=== PATIENT | female | born 2000 | race Caucasian/White ===

== ENCOUNTER 2018-03-07 15:14 | Emergency (ER) | payer OTHER ==
[~2018-03-07] VITALS: Ht 160 cm; Wt 117.9 kg
[~2018-03-07 15:14] MED LIST: AMOX500 PO; BIRTH CONTROL; CEPH500 PO; HYDACE5 PO; MEDR150I IM; PERM5TC TOP; Pyridium100 MG PO; THYROID MED
== END 2018-03-07 16:09 | disposition home or self-care (01) ==
LOC: ER 15:14
DX: J02.9 Acute pharyngitis, unspecified (principal); F17.200 Nicotine dependence, unspecified, uncomplicated
CPT/HCPCS: 87081; 87430; 99283; J1100

== ENCOUNTER 2018-03-09 16:45 | Emergency (ER) | payer OTHER ==
[~2018-03-09] VITALS: Ht 160 cm; Wt 117.9 kg
== END 2018-03-09 17:54 | disposition home or self-care (01) ==
LOC: ER 16:45
DX: J02.9 Acute pharyngitis, unspecified (principal); F17.200 Nicotine dependence, unspecified, uncomplicated
CPT/HCPCS: 99282

== ENCOUNTER 2018-08-17 00:37 | Emergency (ER) | payer OTHER ==
[~2018-08-17] VITALS: Ht 160 cm; Wt 131.5 kg
[2018-08-17] MEDS ORDERED: BENZ100A PO (01:31)
== END 2018-08-17 01:45 | disposition home or self-care (01) ==
LOC: ER 00:37
DX: J40 Bronchitis, not specified as acute or chronic (principal); F17.200 Nicotine dependence, unspecified, uncomplicated
CPT/HCPCS: 99283

== ENCOUNTER 2019-10-26 23:08 | Emergency (ER) | payer OTHER ==
[~2019-10-26] VITALS: Ht 160 cm; Wt 131.5 kg
[~2019-10-26 23:08] MED LIST changes: +BENZ100A PO
[2019-10-28 08:09] LABS: HCV ANTIBODY 0.2 (0.0-0.9); HIV SCREEN 4TH GENERATION WRFX Non Reactive (Non Reactive)
== END 2019-10-27 01:41 | disposition home or self-care (01) ==
LOC: ER 23:08
PROVIDERS: Emergency Medicine
DX: Z77.21 Contact with and (suspected) exposure to potentially hazardous body fluids (principal); F17.200 Nicotine dependence, unspecified, uncomplicated; Z88.8 Allergy status to other drugs, medicaments and biological substances
CPT/HCPCS: 84460; 86317; 86803; 87389; 99283

== ENCOUNTER 2020-02-27 02:34 | Emergency (ER) | payer OTHER ==
[~2020-02-27] VITALS: Ht 160 cm; Wt 136.1 kg
[2020-02-27] MEDS ORDERED: Cymbalta20 MG PT (02:58)
[2020-02-27] MEDS ORDERED: HYDROCODONE-AC1 EAC8 PO (02:59)
[2020-02-27] MEDS ORDERED: ALBU90OI INH (05:18)
[2020-02-27] MEDS ORDERED: ONDA4ODT MM (05:18)
[2020-02-27] MEDS ORDERED: PRED20 PO (05:18)
== END 2020-02-27 05:46 | disposition home or self-care (01) ==
LOC: ER 02:34
DX: J02.9 Acute pharyngitis, unspecified (principal); Z88.8 Allergy status to other drugs, medicaments and biological substances; Z79.899 Other long term (current) drug therapy; Z87.891 Personal history of nicotine dependence; Z20.828 Contact with and (suspected) exposure to other viral communicable diseases
CPT/HCPCS: 71045; 94640; 99284-25; J1100; U0002

== ENCOUNTER → 2020-03-24 | Outpatient (CLI) | payer OTHER ==
[~2020-03-24] MED LIST changes: +ALBU90OI INH; +Cymbalta20 MG PT; +HYDROCODONE-AC1 EAC8 PO; +ONDA4ODT MM; +PRED20 PO
== END | disposition home or self-care (01) ==
LOC: LAB 14:28 → LAB SHORT 14:28
DX: R10.9 Unspecified abdominal pain (principal)
CPT/HCPCS: 87077; 87086; 87186

== ENCOUNTER → 2020-07-29 | Outpatient (CLI) | payer BC, OTHER ==
[~2020-07-29] MED LIST changes: +CYMBALTA30 M2 PO; +PHENA200 PO
[2020-07-29 12:13] LABS: BASOPHILS ABSOLUTE AUTO 0.04 K/mm3 (0.00-0.23); BASOPHILS PERCENT AUTO 0 % (0-2); EOSINOPHILS ABSOLUTE AUTO 0.16 K/mm3 (0.00-0.68); EOSINOPHILS PERCENT AUTO 2 % (0-6); Hematocrit 42.8 % (33.0-51.0); Hemoglobin 14.1 g/dL (11.5-16.0); IMMATURE GRAN ABSOLUTE AUTO 0.02 K/mm3 (0.00-0.10); IMMATURE GRAN PERCENT AUTO 0 % (0-1); LYMPHOCYTES ABSOLUTE AUTO 1.38 K/mm3 (0.84-5.20); LYMPHOCYTES PERCENT AUTO 15 % (21-46); MONOCYTES ABSOLUTE AUTO 0.51 K/mm3 (0.16-1.47); MONOCYTES PERCENT AUTO 6 % (4-13); Mean Corpuscular HGB 29.2 pg (26.0-34.0); Mean Corpuscular HGB Conc 32.9 g/dL (31.5-36.5); Mean Corpuscular Volume 89 fL (80-100); Mean Platelet Volume 10.4 fL (9.1-12.4); NEUTROPHILS PERCENT AUTO 77 % (41-73); Platelet Count 315 K/mm3 (150-400); RDW Coefficient Variation 12.4 % (11.7-14.2); Red Blood Cell Count 4.83 M/mm3 (3.80-5.20); White Blood Cell Count 9.01 K/mm3 (4.00-11.30)
[2020-07-29 12:22] LABS: Alanine Aminotransfer (ALT/SGP 30 U/L (12-78); Albumin, Blood 3.7 g/dL (3.4-5.0); Albumin/Globulin Ratio 0.9 (0.8-1.8); Alk Phos 64 U/L (40-126); Anion Gap 9 mmol/L (6-16); Aspartate Aminotrans (AST/SGOT 15 U/L (12-37); Bilirubin, Total 0.4 mg/dL (0.1-1.0); Blood Urea Nitrogen 10 mg/dL (8-24); Bun/Creatinine Ratio 13.3 (12.0-20.0); CO2, Blood 25 mmol/L (21-32); Calcium, Blood 8.8 mg/dL (8.5-10.1); Chloride, Blood 102 mmol/L (98-108); Creatinine, Blood 0.75 mg/dL (0.40-1.00); Globulin, Blood 4.2 g/dL (2.2-4.0); Glomerular Filtration Rate >60 (60-); Glucose, Blood 112 mg/dL (70-99); Potassium, Blood 4.3 mmol/L (3.5-5.5); Sodium, Blood 136 mmol/L (136-145); Total Protein, Blood 7.9 g/dL (6.4-8.2)
== END ==
LOC: LAB SHORT 12:09 → PLD 12:09
PROVIDERS: General Practice
DX: J02.9 Acute pharyngitis, unspecified (principal)
CPT/HCPCS: 80053; 85025; 86644; 86645; 86664

== ENCOUNTER 2020-09-10 14:38 | Emergency (ER) | payer BC, OTHER ==
[~2020-09-10] VITALS: Ht 160 cm; Wt 127.0 kg
[~2020-09-10 14:38] MED LIST changes: -CYMBALTA30 M2 PO; -PHENA200 PO
[2020-09-10] MEDS ORDERED: CEPH500 PO (16:24)
[2020-09-10] MEDS ORDERED: PHENA200 PO (16:24)
== END 2020-09-10 17:20 | disposition home or self-care (01) ==
LOC: ER 14:38
DX: N39.0 Urinary tract infection, site not specified (principal); J06.9 Acute upper respiratory infection, unspecified; Z20.822 Contact with and (suspected) exposure to COVID-19; Z88.8 Allergy status to other drugs, medicaments and biological substances; Z79.52 Long term (current) use of systemic steroids; Z79.899 Other long term (current) drug therapy
CPT/HCPCS: 99283; A9270

== ENCOUNTER 2020-12-15 05:14 | Emergency (ER) | payer OTHER, BC ==
[~2020-12-15] VITALS: Ht 160 cm; Wt 129.3 kg
[~2020-12-15 05:14] MED LIST changes: +PHENA200 PO
[2020-12-15] MEDS ORDERED: CYMBALTA30 M2 PO (05:37)
[2020-12-16 06:11] LABS: HCV ANTIBODY <0.1 (0.0-0.9)
[2020-12-16 07:11] LABS: HIV SCREEN 4TH GENERATION WRFX Non Reactive (Non Reactive)
== END 2020-12-15 07:50 | disposition home or self-care (01) ==
LOC: ER 05:14
PROVIDERS: Emergency Medicine
DX: S61.231A Puncture wound without foreign body of left index finger without damage to nail, initial encounter (principal); Z77.21 Contact with and (suspected) exposure to potentially hazardous body fluids; Z88.8 Allergy status to other drugs, medicaments and biological substances; Z79.899 Other long term (current) drug therapy; Z87.891 Personal history of nicotine dependence; W46.1XXA Contact with contaminated hypodermic needle, initial encounter
CPT/HCPCS: 84460; 86317; 86703; 86803; 87340; 87389; 99282

== ENCOUNTER 2021-11-22 09:43 | Observation (INO) | payer OTHER ==
[~2021-11-22] VITALS: Ht 160 cm; Wt 147.0 kg
[~2021-11-22 09:43] MED LIST changes: +CYMBALTA30 M2 PO
[2021-11-22 10:17] LABS: Source, Urine Clean Catch
[2021-11-22 10:43] LABS: Appearance, Urine Hazy (Clear); Bilirubin, Urine 1+ (Neg); Blood, Urine 1+ (Neg); Color, Urine Yellow (P-Yellow); Glucose Qualitative, Urine Neg (Neg); Ketones, Urine 1+ (Neg); Leukocyte Esterase, Urine 1+ (Neg); Nitrite, Urine Neg (Neg); Protein, Urine 2+ (Neg); Specific Gravity, Urine 1.025 (1.003-1.022); Urobilinogen, Urine 3+ (Normal)
[2021-11-22 10:49] LABS: Bacteria Rare /hpf; Squamous Epithelial Cells Mod /hpf (Few)
[2021-11-22 11:08] LABS: Protein, Urine Random 34.4 mg/dL (0.0-11.9); Protein/Creat Ratio, Ur Random 0.2
[2021-11-22 11:25] LABS: BASOPHILS ABSOLUTE AUTO 0.01 K/mm3 (0.00-0.23); BASOPHILS PERCENT AUTO 0 % (0-2); EOSINOPHILS ABSOLUTE AUTO 0.03 K/mm3 (0.00-0.68); EOSINOPHILS PERCENT AUTO 0 % (0-6); Hematocrit 34.1 % (33.0-51.0); Hemoglobin 11.3 g/dL (11.5-16.0); IMMATURE GRAN ABSOLUTE AUTO 0.02 K/mm3 (0.00-0.10); IMMATURE GRAN PERCENT AUTO 0 % (0-1); LYMPHOCYTES ABSOLUTE AUTO 1.08 K/mm3 (0.84-5.20); LYMPHOCYTES PERCENT AUTO 15 % (21-46); MONOCYTES ABSOLUTE AUTO 0.41 K/mm3 (0.16-1.47); MONOCYTES PERCENT AUTO 6 % (4-13); Mean Corpuscular HGB 28.3 pg (26.0-34.0); Mean Corpuscular HGB Conc 33.1 g/dL (31.5-36.5); Mean Corpuscular Volume 86 fL (80-100); Mean Platelet Volume 11.1 fL (9.1-12.4); NEUTROPHILS ABSOLUTE AUTO 5.52 K/mm3 (1.96-9.15); NEUTROPHILS PERCENT AUTO 78 % (41-73); Platelet Count 224 K/mm3 (150-400); RDW Coefficient Variation 13.2 % (11.7-14.2); RDW Standard Deviation 40.6 fL (35.1-46.3); Red Blood Cell Count 3.99 M/mm3 (3.80-5.20); White Blood Cell Count 7.07 K/mm3 (4.00-11.30)
[2021-11-22 11:44] LABS: Albumin, Blood 2.2 g/dL (3.4-5.0); Albumin/Globulin Ratio 0.6 (0.8-1.8); Bilirubin, Total 0.3 mg/dL (0.1-1.0); Bun/Creatinine Ratio 22.6 (12.0-20.0); Calcium, Blood 9.1 mg/dL (8.5-10.1); Creatinine, Blood 0.57 mg/dL (0.40-1.00); Globulin, Blood 3.9 g/dL (2.2-4.0); Potassium, Blood 3.8 mmol/L (3.5-5.5); Total Protein, Blood 6.1 g/dL (6.4-8.2)
[2021-11-22 12:06] LABS: Amylase, Blood 256 U/L (25-115)
[2021-11-22 14:18] LABS: Cholesterol 175 mg/dL (50-200); Triglycerides 228 mg/dL (30-140)
[2021-11-22] MEDS ORDERED: METF500 PO (14:55)
[2021-11-22] MEDS ORDERED: HUMULIN R100 UNIT/2 SC ×2 (14:57)
[2021-11-22] MEDS ORDERED: HUMULIN N100 UNIT/6 SC ×2 (14:59)
[2021-11-22] MEDS ORDERED: BUSP10 PO (15:00)
[2021-11-22] MEDS ORDERED: PRENATAL TABLE1 EAC2 PO (15:00)
--- NOTE | 2021-11-22 16:34 | NUR ---
PT SLEEPING SOUNDLY
--- NOTE | 2021-11-22 19:30 | NUR ---
ASSUMED CARE OF PT AT 1900. REPORT RECEIVED FROM AYAH BROWNLEE. PT IS AO, RESTING IN BED. REPORTS MILD H/A AND LUQ PAIN RADIATING TO BACK, BOTH RATED 3/10. SHE STATES SHE IS HAVING SOME NAUSEA AND JUST FEELS GENERALLY UNWELL, BUT ATTRIBUTES THAT TO HER BLOOD SUGAR BEING LOW.BP IS TAKEN ON R WRIST AT LEVEL OF HEART DUE TO BODY HABITUS. REFLEXES WNL. PERRL 3MM. PT IS GENERALLY EDEMATOUS, NO PITTING. PT IS FAMILIAR WITH CALL LIGHT AND POC IS REVIEWED.
--- NOTE | 2021-11-22 20:00 | NUR ---
Giovana LOUISE CNM CALLED FOR CBG BELOW 80. WILL GIVE 100ML D5 AND RECHECK.
--- NOTE | 2021-11-22 20:42 | NUR ---
Giovana LOUISE CNM IS CALLED REGARDING CBG BELOW 80. WILL GIVE 1/2 AMP D50 AND START D5LR AT 125/HR FOR MAINTENANCE.
--- NOTE | 2021-11-22 22:25 | NUR ---
Giovana LOUISE CNM IS CALLED REGARDING CBG CONTINUES TO BE BELOW 80 DESPITE INTERVENTIONS. ORDERS FOR 1 AMP D50 NOW. RECHECK 30MIN AFTER AND IF CBG STILL BELOW 80 WILL CALL HOSPITALIST FOR ADVICE.
[2021-11-23 06:08] LABS: BASOPHILS ABSOLUTE AUTO 0.01 K/mm3 (0.00-0.23); BASOPHILS PERCENT AUTO 0 % (0-2); EOSINOPHILS ABSOLUTE AUTO 0.02 K/mm3 (0.00-0.68); EOSINOPHILS PERCENT AUTO 0 % (0-6); Hematocrit 35.4 % (33.0-51.0); Hemoglobin 11.4 g/dL (11.5-16.0); IMMATURE GRAN ABSOLUTE AUTO 0.01 K/mm3 (0.00-0.10); IMMATURE GRAN PERCENT AUTO 0 % (0-1); LYMPHOCYTES ABSOLUTE AUTO 1.63 K/mm3 (0.84-5.20); LYMPHOCYTES PERCENT AUTO 27 % (21-46); MONOCYTES ABSOLUTE AUTO 0.37 K/mm3 (0.16-1.47); MONOCYTES PERCENT AUTO 6 % (4-13); Mean Corpuscular HGB 28.1 pg (26.0-34.0); Mean Corpuscular HGB Conc 32.2 g/dL (31.5-36.5); Mean Corpuscular Volume 87 fL (80-100); Mean Platelet Volume 11.2 fL (9.1-12.4); NEUTROPHILS ABSOLUTE AUTO 3.94 K/mm3 (1.96-9.15); NEUTROPHILS PERCENT AUTO 66 % (41-73); Platelet Count 236 K/mm3 (150-400); RDW Coefficient Variation 13.3 % (11.7-14.2); RDW Standard Deviation 41.7 fL (35.1-46.3); Red Blood Cell Count 4.05 M/mm3 (3.80-5.20); White Blood Cell Count 5.98 K/mm3 (4.00-11.30)
--- NOTE | 2021-11-23 06:25 | NUR ---
PT SLEEPS SOUNDLY OVERNIGHT WITH BRIEF INTERRUPTIONS FOR CARE. SHE REPORTS THAT HER H/A IS GONE, AND THAT HER LUQ PAIN IS JUST SORE. PT C/O FEELING VERY HUNGRY. CBG THIS AM IS 86, VSS, OU ADEQUATE. WILL CONTINUE TO MONITOR AND REPORT TO ONCOMING SHIFT.
[2021-11-23 06:40] LABS: Albumin, Blood 2.1 g/dL (3.4-5.0); Albumin/Globulin Ratio 0.6 (0.8-1.8); Bilirubin, Total 0.7 mg/dL (0.1-1.0); Bun/Creatinine Ratio 10.8 (12.0-20.0); Calcium, Blood 8.6 mg/dL (8.5-10.1); Creatinine, Blood 0.55 mg/dL (0.40-1.00); Globulin, Blood 3.8 g/dL (2.2-4.0); Potassium, Blood 3.8 mmol/L (3.5-5.5); Total Protein, Blood 5.9 g/dL (6.4-8.2)
--- NOTE | 2021-11-23 08:45 | NUR ---
PT AWAKE AND UP WALKING THE HALLS. STATES SHE IS FEELING MUCH BETTER TODAY.
[2021-11-23 14:53] LABS: Albumin, Blood 2.1 g/dL (3.4-5.0); Albumin/Globulin Ratio 0.6 (0.8-1.8); Bilirubin, Total 0.5 mg/dL (0.1-1.0); Bun/Creatinine Ratio 14.1 (12.0-20.0); Calcium, Blood 8.9 mg/dL (8.5-10.1); Creatinine, Blood 0.5 mg/dL (0.40-1.00); Globulin, Blood 3.8 g/dL (2.2-4.0); Potassium, Blood 4.1 mmol/L (3.5-5.5); Total Protein, Blood 5.9 g/dL (6.4-8.2)
[2021-11-24 07:07] LABS: Albumin, Blood 2.1 g/dL (3.4-5.0); Albumin/Globulin Ratio 0.5 (0.8-1.8); Bilirubin, Total 0.6 mg/dL (0.1-1.0); Bun/Creatinine Ratio 10.9 (12.0-20.0); Calcium, Blood 9.1 mg/dL (8.5-10.1); Creatinine, Blood 0.55 mg/dL (0.40-1.00); Globulin, Blood 3.9 g/dL (2.2-4.0)
--- NOTE | 2021-11-24 22:45 | NUR ---
ASSUMED CARE OF PT. REPORT RECEIVED FROM AYAH RIVERA.
--- NOTE | 2021-11-25 01:00 | NUR ---
PT IS SLEEPING SOUNDLY. AWAKENED BRIEFLY FOR VS. DENIES ANY NEEDS AT THIS TIME.
[2021-11-25 06:30] LABS: Albumin/Globulin Ratio 0.5 (0.8-1.8); Bilirubin, Total 0.6 mg/dL (0.1-1.0); Bun/Creatinine Ratio 12.2 (12.0-20.0); Calcium, Blood 8.7 mg/dL (8.5-10.1); Creatinine, Blood 0.57 mg/dL (0.40-1.00); Globulin, Blood 3.7 g/dL (2.2-4.0); Potassium, Blood 3.8 mmol/L (3.5-5.5); Total Protein, Blood 5.7 g/dL (6.4-8.2)
--- NOTE | 2021-11-25 06:34 | NUR ---
PT SLEEPS WELL OVERNIGHT. SHE STATES HER H/A AND LUQ PAIN ARE NOW GONE. UO IMPROVING, BUT STILL ANTONIO. PT IS TAKING PO WELL, WILL TRY TO DRINK MORE WATER. VSS, NST REACTIVE, LABS PENDING.
--- NOTE | 2021-11-25 12:19 | NUR ---
DISCHARGE INSTRUCTIONS, WRITTEN AND VERBAL, GIVEN TO PATIENT. ANSWERED ALL QUESTIONS AND CONCERNS. IV DISCONTINUED. ALL PERSONAL BELONGINGS RETURNED. PT IS DISCHARGED HOME AND TOLD TO F/U WITH
== END 2021-11-25 12:19 | disposition home or self-care (01) ==
LOC: OBS 09:43 → BC 09:43 → OBS 14:29 → BC 14:30 → OBS 15:11 → BC 15:12 → OBS 15:12 → BC 15:12 → OBS 11-25 12:19
PROVIDERS: Obstetrics & Gynecology; ADMIT Nurse Practitioner Obstetrics & Gynecology
DX: O99.613 Diseases of the digestive system complicating pregnancy, third trimester (principal); O24.419 Gestational diabetes mellitus in pregnancy, unspecified control; O99.283 Endocrine, nutritional and metabolic diseases complicating pregnancy, third trimester; O99.213 Obesity complicating pregnancy, third trimester; E66.9 Obesity, unspecified; K75.81 Nonalcoholic steatohepatitis (NASH); K21.9 Gastro-esophageal reflux disease without esophagitis; K85.90 Acute pancreatitis without necrosis or infection, unspecified; E78.1 Pure hyperglyceridemia; Z3A.32 32 weeks gestation of pregnancy; Z79.4 Long term (current) use of insulin; Z79.84 Long term (current) use of oral hypoglycemic drugs
CPT/HCPCS: 36415; 59025; 76705; 80053; 81001; 81003; 82150; 82465; 82570; 82947; 83036; 83690; 84156; 84478; 85025; 87086; 96361; 96374; A9270; G0378; J2405; J7060; J7120; J7121

== ENCOUNTER 2021-12-02 12:09 | Inpatient (IN) | payer OTHER ==
[~2021-12-02] VITALS: Ht 160 cm; Wt 147.9 kg
[~2021-12-02 12:09] MED LIST changes: +BUSP10 PO; +HUMULIN N100 UNIT/6 SC; +HUMULIN R100 UNIT/2 SC; +METF500 PO; +PRENATAL TABLE1 EAC2 PO
[2021-12-02] MEDS ORDERED: Lantus100 UNIT/1 SC (12:27)
[2021-12-02 12:45] LABS: BASOPHILS ABSOLUTE AUTO 0.02 K/mm3 (0.00-0.23); BASOPHILS PERCENT AUTO 0 % (0-2); EOSINOPHILS ABSOLUTE AUTO 0.03 K/mm3 (0.00-0.68); EOSINOPHILS PERCENT AUTO 0 % (0-6); Hematocrit 36.2 % (33.0-51.0); Hemoglobin 12.1 g/dL (11.5-16.0); IMMATURE GRAN ABSOLUTE AUTO 0.02 K/mm3 (0.00-0.10); IMMATURE GRAN PERCENT AUTO 0 % (0-1); LYMPHOCYTES ABSOLUTE AUTO 1.36 K/mm3 (0.84-5.20); LYMPHOCYTES PERCENT AUTO 17 % (21-46); MONOCYTES ABSOLUTE AUTO 0.47 K/mm3 (0.16-1.47); MONOCYTES PERCENT AUTO 6 % (4-13); Mean Corpuscular HGB 28.1 pg (26.0-34.0); Mean Corpuscular HGB Conc 33.4 g/dL (31.5-36.5); Mean Corpuscular Volume 84 fL (80-100); Mean Platelet Volume 11.8 fL (9.1-12.4); NEUTROPHILS ABSOLUTE AUTO 5.95 K/mm3 (1.96-9.15); NEUTROPHILS PERCENT AUTO 76 % (41-73); Platelet Count 277 K/mm3 (150-400); RDW Coefficient Variation 13.8 % (11.7-14.2); White Blood Cell Count 7.85 K/mm3 (4.00-11.30)
[2021-12-02 13:05] LABS: Albumin, Blood 2.3 g/dL (3.4-5.0); Albumin/Globulin Ratio 0.5 (0.8-1.8); Bilirubin, Total 0.8 mg/dL (0.1-1.0); Bun/Creatinine Ratio 18.7 (12.0-20.0); Calcium, Blood 9.1 mg/dL (8.5-10.1); Creatinine, Blood 0.54 mg/dL (0.40-1.00); Globulin, Blood 4.3 g/dL (2.2-4.0); Potassium, Blood 4.4 mmol/L (3.5-5.5); Total Protein, Blood 6.6 g/dL (6.4-8.2)
[2021-12-02 18:34] LABS: Source, Urine Clean Catch
[2021-12-02 18:37] LABS: Appearance, Urine Hazy (Clear); Bilirubin, Urine Neg (Neg); Blood, Urine Neg (Neg); Color, Urine Yellow (P-Yellow); Glucose Qualitative, Urine Neg (Neg); Ketones, Urine Neg (Neg); Leukocyte Esterase, Urine 2+ (Neg); Nitrite, Urine Neg (Neg); Protein, Urine Neg (Neg); Urobilinogen, Urine NORM (Normal); pH, Urine 6.5 (5.0-8.0)
[2021-12-02 19:01] LABS: Bacteria Many /hpf; Red Blood Cells, Urine 0-2 /hpf (0-2); Squamous Epithelial Cells Mod /hpf (Few)
--- NOTE | 2021-12-02 19:49 | NUR ---
PT APPEARS TO BE RESTING COMFORTABLY IN BED WITH EYES CLOSED. HAS CALL LIGHT IN REACH.
--- NOTE | 2021-12-02 20:27 | NUR ---
PROVIDER AILYN THOMPSON IN TO SEE PT AT THIS TIME. NEW ORDER FOR BENADRYL AND SMALL AMOUNTS OF PO ICE OBTAINED. WILL CONTINUE TO LEAVE PT NPO WITH LR RUNNING AT 125 ML/HR. 24HR URINE COLLECTION IN PROGRESS. PLAN TO REPEAT LABS IN MORNING. PT EDUCATED ON PLAN, DIET, INSULIN, AND PAIN MANAGEMENT. PT VERBALIZED UNDERSTANDING AND DENIED CONCERNS AT THIS TIME. PT CURRENTLY RESTING IN BED WITH CALL LIGHT IN REACH. WILL CONTINUE TO MONITOR PT FOR CHANGES AND IMPLEMENT ORDERS DIRECTED.
--- NOTE | 2021-12-02 21:36 | NUR ---
JAY NOTIFIED OF CBG VALUE OF 67, NEW ORDER OBTAINED FOR D5 AT 125ML/HR. PT DENIES SX OF HYPOGLYCEMIA. WILL IMPLEMENT ORDER AND CONTINUE TO MONITOR PATIENT, WILL ASSESS CBG ORDERED. PT SITTING ON SIDE OF BED USING CELL PHONE. HAS CALL LIGHT IN REACH. DENIES NEEDS.
--- NOTE | 2021-12-03 02:11 | NUR ---
PT COMPLAINS OF "FEELING OFF" UPON WAKING-UP TO USE BATHROOM AT THIS TIME. STATES, "NOTHING DRAMATIC JUST FEELING OFF A LITTLE." VITAL SIGNS STABLE, CBG 86, DENIES SHORTNESS OF BREATH, N/V, NUMBNESS/TINGLING, CHEST PAIN OR VISUAL CHANGES. REPORTS FEELING BABY MOVE WITHIN THE LAST 30MINS. PT ALSO C/O BACK, HIPS, RIB CAGE DISCOMFORT. RATES PAIN 3/10; PO TYLENOL GIVEN PER ORDER. SMALL AMOUNT OF WATER AND ICE CHIPS PROVIDED. PT DANGLING AT BEDSIDE WHILE EATING ICE CHIPS. HAS CALL LIGHT IN REACH. D5 INFUSING PER ORDER. WILL CONTINUE TO MONITOR
--- NOTE | 2021-12-03 02:20 | NUR ---
SCD PT REFUSING SCD AT THIS TIME, REQUESTING "A LITTLE BREAK." EDUCATED PT ON IMPORTANCE OF SCD USE AND RISK INVOLVED WITH REMOVING. PT VERBALIZED UNDERSTANDING. PLAN TO PROMPT PT TO USE SCD'S IN 2 HOURS, PER PT/RN DISCUSSION.
--- NOTE | 2021-12-03 02:53 | NUR ---
PT APPEARS TO BE SLEEPING IN BED AND SNORING. HAS CALL LIGHT IN REACH.
[2021-12-03 05:46] LABS: BASOPHILS ABSOLUTE AUTO 0.02 K/mm3 (0.00-0.23); BASOPHILS PERCENT AUTO 0 % (0-2); EOSINOPHILS ABSOLUTE AUTO 0.04 K/mm3 (0.00-0.68); EOSINOPHILS PERCENT AUTO 1 % (0-6); Hematocrit 34.8 % (33.0-51.0); Hemoglobin 11.1 g/dL (11.5-16.0); IMMATURE GRAN ABSOLUTE AUTO 0.02 K/mm3 (0.00-0.10); IMMATURE GRAN PERCENT AUTO 0 % (0-1); LYMPHOCYTES PERCENT AUTO 28 % (21-46); MONOCYTES ABSOLUTE AUTO 0.37 K/mm3 (0.16-1.47); MONOCYTES PERCENT AUTO 6 % (4-13); Mean Corpuscular HGB Conc 31.9 g/dL (31.5-36.5); Mean Corpuscular Volume 88 fL (80-100); Mean Platelet Volume 11.7 fL (9.1-12.4); NEUTROPHILS ABSOLUTE AUTO 3.69 K/mm3 (1.96-9.15); NEUTROPHILS PERCENT AUTO 64 % (41-73); Platelet Count 227 K/mm3 (150-400); RDW Coefficient Variation 14.1 % (11.7-14.2); Red Blood Cell Count 3.96 M/mm3 (3.80-5.20); White Blood Cell Count 5.74 K/mm3 (4.00-11.30)
[2021-12-03 06:17] LABS: Albumin, Blood 1.9 g/dL (3.4-5.0); Albumin/Globulin Ratio 0.5 (0.8-1.8); Bilirubin, Total 0.7 mg/dL (0.1-1.0); Bun/Creatinine Ratio 11.9 (12.0-20.0); Calcium, Blood 8.7 mg/dL (8.5-10.1); Creatinine, Blood 0.51 mg/dL (0.40-1.00); Globulin, Blood 3.8 g/dL (2.2-4.0); Potassium, Blood 3.7 mmol/L (3.5-5.5); Thyroid Stimulating Hormone 3.73 uIU/mL (0.360-4.800); Total Protein, Blood 5.7 g/dL (6.4-8.2)
--- NOTE | 2021-12-03 12:14 | NUR ---
REPORT FROM AYAH PLASCENCIA. PER PT REQUEST, SHE WOULD LIKE TO SHOWER. FEELING BETTER THAN SHE DID YESTERDAY, AWAITING DR. CULP HOSPITALIST FOR CONSULT THIS AFTERNOON. PER DR CULP, SHE IS WAITING FOR THE ULTRASOUND REPORT TO COME BACK AND PER DR MALDONADO PT WILL STAY OVERNIGHT TONIGHT. PT HAVING NO PAIN AT THIS TIME. UP TO SHOWER. FLUIDS PAUSED DURING SHOWER. 24 HOUR URINE RESTARTED AT 11:00.
--- NOTE | 2021-12-03 13:16 | NUR ---
PER DR CULP PT CAN PROGRESS TO CLEAR LIQUID DIET
[2021-12-04 06:28] LABS: Albumin, Blood 1.9 g/dL (3.4-5.0); Albumin/Globulin Ratio 0.5 (0.8-1.8); Bilirubin, Total 0.7 mg/dL (0.1-1.0); Calcium, Blood 8.7 mg/dL (8.5-10.1); Creatinine, Blood 0.5 mg/dL (0.40-1.00); Globulin, Blood 3.7 g/dL (2.2-4.0); Potassium, Blood 3.6 mmol/L (3.5-5.5); Total Protein, Blood 5.6 g/dL (6.4-8.2)
--- NOTE | 2021-12-04 07:10 | NUR ---
hospitalist making rounds, new orders for clear liquid advancement at 0820 dr palacios making rounds
--- NOTE | 2021-12-04 07:20 | NUR ---
pt not reporting any pain, pt encouraged to let RN know when needs cbg done, that it needs to be 1 hr postprandial and to start when she eats.
--- NOTE | 2021-12-04 08:40 | NUR ---
IV FLUIDS STOPPED AT 0840, PER MARIAN CNLaura AT BEDSIDE, OK TO DC PT AT 1100 AFTER 24 HR URINE IS COLLECTED, DONT NEED RESULTS, THEY WILL CALL HER WITH THE RESULTS PT WORKS TOMORROW IN THEIR OFFICE
--- NOTE | 2021-12-04 09:53 | NUR ---
PT REPEAT HOURLY CBG WAS 114, NO INSULIN COVERAGE NEEDED.
--- NOTE | 2021-12-04 11:17 | NUR ---
24 HR URINE UP TO LAB, OK TO DC PT WITH OUT RESULTS PER MARIAN CNM
--- NOTE | 2021-12-04 11:23 | NUR ---
KYLE AT 1123, TOOK 2 BP, FIRST ONE WAS WITH PT LEANING BACK ON BED PUTTING PRESSURE ON HER ARM HOLDING HERSELF UP. HAD PT SIT AND TAKE PRESSURE OFF ARM AND BP WAS 140/76, THIS IS A NORMAL BP FOR PT PER PT. URINE IS UPSTAIRS, WILL NOTIFY CARLEEN NAVARRO OR DR MONACO OF RESULTS WHEN THEM COME IN AT 1300ISH. PT IS HAPPY TO LEAVE, HAS APPT TOMORROW WITH [facility], PT IS THINKING SHE WANTS TO DELIVER THERE INSTEAD OF HERE INCASE BABY NEEDS TO BE TRANSPORTED, SHE DOESNT WANT TO BE SEPERATED FROM BABY.
[2021-12-04 11:57] LABS: Protein, Urine Quantitative 6.2 mg/dL (0.0-11.9)
== END 2021-12-04 11:20 | disposition home or self-care (01) | DRG 831 ==
LOC: ER 12:09 → BC 16:00
PROVIDERS: Emergency Medicine; Internal Medicine; Nurse Practitioner Obstetrics & Gynecology; Student in an Organized Health Care Education/Training Program; ADMIT Obstetrics & Gynecology
DX: O99.613 Diseases of the digestive system complicating pregnancy, third trimester (principal); K85.10 Biliary acute pancreatitis without necrosis or infection; O99.213 Obesity complicating pregnancy, third trimester; O99.343 Other mental disorders complicating pregnancy, third trimester; E03.9 Hypothyroidism, unspecified; O24.414 Gestational diabetes mellitus in pregnancy, insulin controlled; O99.283 Endocrine, nutritional and metabolic diseases complicating pregnancy, third trimester; E88.81 Metabolic syndrome and other insulin resistance; O99.333 Smoking (tobacco) complicating pregnancy, third trimester; E78.5 Hyperlipidemia, unspecified; K75.81 Nonalcoholic steatohepatitis (NASH); F41.8 Other specified anxiety disorders; F31.9 Bipolar disorder, unspecified; F17.210 Nicotine dependence, cigarettes, uncomplicated; Z3A.34 34 weeks gestation of pregnancy; Z79.4 Long term (current) use of insulin; Z87.01 Personal history of pneumonia (recurrent); Z98.818 Other dental procedure status; Z91.048 Other nonmedicinal substance allergy status; Z79.899 Other long term (current) drug therapy
CPT/HCPCS: 36415; 76705; 76815; 80053; 81001; 81050; 82150; 82947; 83036; 83690; 84156; 84443; 85025; 87086; 96374; 99285-25; A9270; C9113; J2405; J2550; J7120; J7121

== ENCOUNTER 2021-12-26 07:30 | Inpatient (IN) | payer OTHER ==
[~2021-12-26] VITALS: Ht 160 cm; Wt 148.0 kg
[~2021-12-26 07:30] MED LIST changes: +Lantus100 UNIT/1 SC
--- NOTE | 2021-12-26 09:38 | NUR ---
FHT 140s
[2021-12-26 09:45] LABS: BASOPHILS ABSOLUTE AUTO 0.02 K/mm3 (0.00-0.23); BASOPHILS PERCENT AUTO 0 % (0-2); EOSINOPHILS ABSOLUTE AUTO 0.01 K/mm3 (0.00-0.68); EOSINOPHILS PERCENT AUTO 0 % (0-6); Hematocrit 37.1 % (33.0-51.0); Hemoglobin 12.4 g/dL (11.5-16.0); IMMATURE GRAN ABSOLUTE AUTO 0.02 K/mm3 (0.00-0.10); IMMATURE GRAN PERCENT AUTO 0 % (0-1); LYMPHOCYTES PERCENT AUTO 23 % (21-46); MONOCYTES ABSOLUTE AUTO 0.45 K/mm3 (0.16-1.47); MONOCYTES PERCENT AUTO 6 % (4-13); Mean Corpuscular HGB 28.8 pg (26.0-34.0); Mean Corpuscular HGB Conc 33.4 g/dL (31.5-36.5); Mean Corpuscular Volume 86 fL (80-100); Mean Platelet Volume 12.6 fL (9.1-12.4); NEUTROPHILS ABSOLUTE AUTO 5.32 K/mm3 (1.96-9.15); NEUTROPHILS PERCENT AUTO 71 % (41-73); Platelet Count 222 K/mm3 (150-400); RDW Coefficient Variation 14.6 % (11.7-14.2); RDW Standard Deviation 45.8 fL (35.1-46.3); Red Blood Cell Count 4.31 M/mm3 (3.80-5.20); White Blood Cell Count 7.52 K/mm3 (4.00-11.30)
[2021-12-26 10:25] LABS: Albumin, Blood 2.4 g/dL (3.4-5.0); Albumin/Globulin Ratio 0.6 (0.8-1.8); Bilirubin, Total 0.6 mg/dL (0.1-1.0); Bun/Creatinine Ratio 22.7 (12.0-20.0); Creatinine, Blood 0.84 mg/dL (0.40-1.00); Globulin, Blood 4.2 g/dL (2.2-4.0); Potassium, Blood 3.9 mmol/L (3.5-5.5); Total Protein, Blood 6.6 g/dL (6.4-8.2)
[2021-12-26 10:28] LABS: Amylase, Blood 57 U/L (25-115)
[2021-12-26 13:33] LABS: PCO2 Cord - Arterial 64.6 mmHg (40-50); pH Cord - Arterial 7.22 (7.28-7.35)
[2021-12-26 13:34] LABS: PO2 Cord - Arterial < 14 mmHg (16-20)
[2021-12-26 13:36] LABS: PO2 Cord - Venous 24.2 mmHg (28-32); pH Umbilical Cord - Venous 7.26 (7.26-7.35)
--- NOTE | 2021-12-26 14:56 | NUR ---
1415 dr wonderly aware that pt is having a pph, reports to give methergine im if bp meets parameters 1430 cytotec 800mcg given rectally per dr wonderly 1445 dr wonderly aware of qbl of 721, reports to give a second dose of methergine im if needed, bp meets parameters
--- NOTE | 2021-12-26 15:06 | NUR ---
DR LOERA AWARE AT 1506 PT LARGE GUSH, TO GIVE HEMABATE, BP TOO HIGH FOR SECOND DOSE OF METHERGINE,. ORDER FOR LR/PITOCIN 250CC/HR WHEN VAG BLEEDING SMALL MAY GO DOWN TO 150CC/HR. MAY SL WHEN VAG BLEEDING APPROPERIATE PER DR MALDONADO
--- NOTE | 2021-12-26 15:48 | NUR ---
12/26/21 1548 Tia Michel INTO OR AT 1213. BABY BOY DELIVERED AT 1305, 8/9 APGARS. EBL 750 IN OR, TRANSFERRED TO OB PACU AT 1419. WILL CONTINUE TO MONITOR.
--- NOTE | 2021-12-26 16:01 | NUR ---
AT 1419 PT ADMITTED TO PACU. BP, HR, O2 MONITORED. PAS RESTARTED.REPORT FROM MD CORTEZ RECEIVED, EBL 750 FROM OR. FUNDAL RUB AT 1430 RESULTED IN THE EXPRESSION OF TWO LARGE CLOTS WITH CONTINUED BLEEDING UNTIL EVENTUALLY FUNDUS BECAME FIRM. QBL 721, WITH ADDITIONAL EBL 750 FOR A TOTAL OF 1471. WONDERLY CALLED, ORDERS FOR IM METHERGINE OBTAINED. MULTIPLE RN'S REMINDED OF PT'S PREECLAMPSIA DIAGNOSIS. ORDERED METHERGINE .2MG TO BE GIVEN. @1550 FUNDAL MASSAGE EXPRESSED ADDITIONAL CLOTS. WONDERLY CALLED X2 TO CONSULT WITH NO ANSWER. WILL CONTINUE TO ATTEMPT TO CONTACT.
[2021-12-26 22:47] LABS: BASOPHILS ABSOLUTE AUTO 0.03 K/mm3 (0.00-0.23); BASOPHILS PERCENT AUTO 0 % (0-2); EOSINOPHILS PERCENT AUTO 0 % (0-6); Hematocrit 26.9 % (33.0-51.0); Hemoglobin 9.1 g/dL (11.5-16.0); IMMATURE GRAN ABSOLUTE AUTO 0.02 K/mm3 (0.00-0.10); IMMATURE GRAN PERCENT AUTO 0 % (0-1); LYMPHOCYTES ABSOLUTE AUTO 1.51 K/mm3 (0.84-5.20); LYMPHOCYTES PERCENT AUTO 15 % (21-46); MONOCYTES ABSOLUTE AUTO 0.47 K/mm3 (0.16-1.47); MONOCYTES PERCENT AUTO 5 % (4-13); Mean Corpuscular HGB 28.8 pg (26.0-34.0); Mean Corpuscular HGB Conc 33.8 g/dL (31.5-36.5); Mean Corpuscular Volume 85 fL (80-100); Mean Platelet Volume 12.1 fL (9.1-12.4); NEUTROPHILS ABSOLUTE AUTO 7.86 K/mm3 (1.96-9.15); NEUTROPHILS PERCENT AUTO 79 % (41-73); Platelet Count 161 K/mm3 (150-400); RDW Coefficient Variation 14.6 % (11.7-14.2); RDW Standard Deviation 45.1 fL (35.1-46.3); Red Blood Cell Count 3.16 M/mm3 (3.80-5.20); White Blood Cell Count 9.89 K/mm3 (4.00-11.30)
[2021-12-27 06:17] LABS: BASOPHILS ABSOLUTE AUTO 0.02 K/mm3 (0.00-0.23); BASOPHILS PERCENT AUTO 0 % (0-2); EOSINOPHILS ABSOLUTE AUTO 0.02 K/mm3 (0.00-0.68); EOSINOPHILS PERCENT AUTO 0 % (0-6); Hematocrit 25.6 % (33.0-51.0); Hemoglobin 8.5 g/dL (11.5-16.0); IMMATURE GRAN ABSOLUTE AUTO 0.02 K/mm3 (0.00-0.10); IMMATURE GRAN PERCENT AUTO 0 % (0-1); LYMPHOCYTES PERCENT AUTO 14 % (21-46); MONOCYTES PERCENT AUTO 6 % (4-13); Mean Corpuscular HGB 28.7 pg (26.0-34.0); Mean Corpuscular HGB Conc 33.2 g/dL (31.5-36.5); Mean Corpuscular Volume 87 fL (80-100); NEUTROPHILS ABSOLUTE AUTO 6.76 K/mm3 (1.96-9.15); NEUTROPHILS PERCENT AUTO 79 % (41-73); Platelet Count 157 K/mm3 (150-400); RDW Coefficient Variation 14.7 % (11.7-14.2); RDW Standard Deviation 46.2 fL (35.1-46.3); Red Blood Cell Count 2.96 M/mm3 (3.80-5.20); White Blood Cell Count 8.52 K/mm3 (4.00-11.30)
[2021-12-27 06:38] LABS: Albumin, Blood 1.7 g/dL (3.4-5.0); Albumin/Globulin Ratio 0.4 (0.8-1.8); Bilirubin, Total 0.3 mg/dL (0.1-1.0); Bun/Creatinine Ratio 17.1 (12.0-20.0); Calcium, Blood 8.4 mg/dL (8.5-10.1); Creatinine, Blood 0.7 mg/dL (0.40-1.00); Globulin, Blood 4.1 g/dL (2.2-4.0); Potassium, Blood 4.3 mmol/L (3.5-5.5); Total Protein, Blood 5.8 g/dL (6.4-8.2)
--- NOTE | 2021-12-27 07:43 | NUR ---
WOUND VAC IN PLACE OVER INCISION. PT DESIRES TO GET UP TO SHOWER AFTER BREAKFAST. REPORTS PAIN 3/10 AND TOLERATES WELL.
--- NOTE | 2021-12-27 09:00 | NUR ---
PT DECLINED WANTING TO GET UP TO SHOWER OR BRP AT THIS TIME.
--- NOTE | 2021-12-27 10:24 | NUR ---
UP TO SHOWER. VOIDED. LINENS CHANGED. PT DAVID WELL. LOCHIA LIGHT
--- NOTE | 2021-12-27 17:55 | NUR ---
1740: PT UP TO BRP. DAVID SELF CARE WELL. FAMILY CALLS FOR RN STATING THAT PT REPORTS SHE CAN'T CATCH HER BREATH. RN AND ADDITIONAL STAFF INTO ROOM. PT'S COLOR IS GOOD. PT TEARFUL AND HYPERVENTILATING. PT ASSISTING TO BED. BREATHING CORRECTED. VS DONE. BIOX 99%, COLOR GOOD. PT DENIES CHEST PAIN IN ANY ONE SPECIFIC SPOT BUT STATES SHE FEELS LIKE SHE CAN'T GET HER BREATH. PT SET UP IN HIGH NOVA'S POSITION. LUNGS CLEAR T/O. RR DOWN TO 24. PT DESIRES TO TAKE A PAIN RX AND HER BUSPAR. B/P NOTED TO BE ELEVATED. WILL REASSES PATIENT CALMS DOWN. 1754: Giovana LOUISE CNM AT BEDSIDE. BABY FUSSY. PT DESIRES TO BREAST FEED NB. PT REPORTS TO BE FEELING BETTER BUT STILL APPEARS ANXIOUS.
--- NOTE | 2021-12-27 18:03 | NUR ---
PT REQUESTS STOOL SOFTENER
--- NOTE | 2021-12-27 18:15 | NUR ---
BF NB WELL. PT REPORTS FEELING A LOT BETTER.
--- NOTE | 2021-12-27 18:38 | NUR ---
pt resting with nb sts. reports she is feeling better and pain tolerable.
[2021-12-29] MEDS ORDERED: IBUP800 PO (09:40)
[2021-12-29] MEDS ORDERED: Percocet 5-3251 EACH PO (09:41)
--- NOTE | 2021-12-29 11:00 | NUR ---
D/C HOME WITH BABY
== END 2021-12-29 11:05 | disposition home or self-care (01) | DRG 787 ==
LOC: BC 07:30
PROVIDERS: Advanced Practice Midwife; Nurse Practitioner Obstetrics & Gynecology; ADMIT Obstetrics & Gynecology
PROC: 10D00Z1 Extraction of Products of Conception, Low, Open Approach (ICD-10-PCS; principal; 2021-12-26 12:00)
DX: O32.1XX0 Maternal care for breech presentation, not applicable or unspecified (principal); D62 Acute posthemorrhagic anemia; O72.1 Other immediate postpartum hemorrhage; O14.04 Mild to moderate pre-eclampsia, complicating childbirth; O24.429 Gestational diabetes mellitus in childbirth, unspecified control; Z3A.37 37 weeks gestation of pregnancy; Z37.0 Single live birth; O36.63X0 Maternal care for excessive fetal growth, third trimester, not applicable or unspecified; O99.03 Anemia complicating the puerperium; O77.0 Labor and delivery complicated by meconium in amniotic fluid; R79.89 Other specified abnormal findings of blood chemistry; O99.892 Other specified diseases and conditions complicating childbirth; Z67.41 Type O blood, Rh negative; Z79.899 Other long term (current) drug therapy; Z91.09 Other allergy status, other than to drugs and biological substances
CPT/HCPCS: 36415; 80053; 82150; 82803; 82947; 83690; 85025; 86850; 86900; 86901; A9270; J0690; J1200; J1720; J1885; J2210; J2270; J2370; J2405; J2590; J2765; J3010; J7120

== ENCOUNTER 2022-01-31 21:45 | Observation (INO) | payer OTHER ==
[~2022-01-31] VITALS: Ht 160 cm; Wt 133.4 kg
[~2022-01-31 21:45] MED LIST changes: +IBUP800 PO; +Percocet 5-3251 EACH PO
[2022-01-31 22:15] LABS: BASOPHILS ABSOLUTE AUTO 0.03 K/mm3 (0.00-0.23); BASOPHILS PERCENT AUTO 0 % (0-2); EOSINOPHILS ABSOLUTE AUTO 0.19 K/mm3 (0.00-0.68); EOSINOPHILS PERCENT AUTO 2 % (0-6); Hematocrit 32.1 % (33.0-51.0); Hemoglobin 10.1 g/dL (11.5-16.0); IMMATURE GRAN ABSOLUTE AUTO 0.03 K/mm3 (0.00-0.10); IMMATURE GRAN PERCENT AUTO 0 % (0-1); LYMPHOCYTES ABSOLUTE AUTO 1.95 K/mm3 (0.84-5.20); LYMPHOCYTES PERCENT AUTO 19 % (21-46); MONOCYTES ABSOLUTE AUTO 0.56 K/mm3 (0.16-1.47); MONOCYTES PERCENT AUTO 5 % (4-13); Mean Corpuscular HGB 26.6 pg (26.0-34.0); Mean Corpuscular HGB Conc 31.5 g/dL (31.5-36.5); Mean Corpuscular Volume 85 fL (80-100); Mean Platelet Volume 9.6 fL (9.1-12.4); NEUTROPHILS PERCENT AUTO 74 % (41-73); Platelet Count 393 K/mm3 (150-400); RDW Coefficient Variation 13.2 % (11.7-14.2); RDW Standard Deviation 41.1 fL (35.1-46.3); Red Blood Cell Count 3.79 M/mm3 (3.80-5.20); White Blood Cell Count 10.46 K/mm3 (4.00-11.30)
[2022-01-31 22:21] LABS: Source, Urine Clean Catch
[2022-01-31 22:26] LABS: Bilirubin, Urine Neg (Neg); Blood, Urine 1+ (Neg); Glucose Qualitative, Urine Neg (Neg); Ketones, Urine Neg (Neg); Leukocyte Esterase, Urine 3+ (Neg); Nitrite, Urine Neg (Neg); Protein, Urine 2+ (Neg); Urobilinogen, Urine 1+ (Normal)
[2022-01-31 22:39] LABS: Albumin, Blood 3.4 g/dL (3.4-5.0); Albumin/Globulin Ratio 0.8 (0.8-1.8); Bilirubin, Total 0.2 mg/dL (0.1-1.0); Bun/Creatinine Ratio 16.5 (12.0-20.0); Calcium, Blood 8.7 mg/dL (8.5-10.1); Creatinine, Blood 0.79 mg/dL (0.40-1.00); Potassium, Blood 3.7 mmol/L (3.5-5.5); Total Protein, Blood 7.4 g/dL (6.4-8.2)
[2022-01-31 22:55] LABS: Appearance, Urine Hazy (Clear); Bacteria Many /hpf; Color, Urine Yellow (P-Yellow); Red Blood Cells, Urine 0-2 /hpf (0-2); Squamous Epithelial Cells Many /hpf (Few); White Blood Cells, Urine 25-50 /hpf (0-5)
[2022-01-31] MEDS ORDERED: LABE100 PO (23:02)
[2022-02-01 02:09] LABS: Influenza A, PCR NEGATIVE (NEGATIVE); Influenza B, PCR NEGATIVE (NEGATIVE); Resp Syncytial Virus, PCR NEGATIVE (NEGATIVE); SARS-Cov-2 (COVID-19) PCR, MMC NEGATIVE (NEGATIVE)
--- NOTE | 2022-02-01 03:32 | NUR ---
PT RECEIVED TO UNIT AT 0230 VIA W/C FROM ED. BAG OF PERSONAL BELONGINGS PLACED AT BEDSIDE. PT ORIENTED TO UNIT AND CALL LIGHT. 5MG OXYCODONE ADMINISTERED FOR UPPER ABDOMINAL PAIN. BREAST PUMP BERNIE TO BEDSIDE FROM FBP PT IS 5 MONTHS AND . LABEL PLACED ON CONTAINER AND PLACED IN BIO BAG IN FRIDGE FOR PT'S MOTHER TO CRIMINALIST TECHNICIAN. SOME C/O NAUSEA BUT DENIES NEED FOR ZOFRAN AT THIS TIME. NPO STATUS; ANTICIPATE CHOLYCYSTECTOMY TODAY WITH DR MANZANO.
--- NOTE | 2022-02-01 15:04 | NUR ---
PT HAS ONE 22 G IV IN R AC THAT RUNS WELL TO GRAVITY.
--- NOTE | 2022-02-01 15:07 | NUR ---
LATE ENTRY/TO OR 1430: PT TO OR FOR CHOLECYSTECTOMY.
--- NOTE | 2022-02-01 18:28 | NUR ---
RETURN FROM OR RECEIVED PT BACK FROM OR AFTER HAVING LAP MARTIN. 4 SMALL ABD INCSIONS WITH STERI STRIPS CD&I. VSS. PLACED 1L O2 UNTIL PT IS MORE AWAKE. DESATS TO 85-90% ON RA WHEN SHE FALLS ASLEEP. WITH 1L O2 SATS ARE 100%. SHE DENIES PAIN AT THS TIME. PER REC ROOM RN SHE RECEIVED 150MCGS OF FENTANYL. SHE REQUESTED ICE CHIPS AND JELLO UPON ARRIVAL. IS TOLERATING WELL.
--- NOTE | 2022-02-01 19:02 | NUR ---
SHIFT SUMMARY PT A&O X4. VSS POST SURGERY. 4 ABD INC COVERED WITH STERI STRIPS ARE CD&I. DENIES PAIN AT THIS TIME. SHE HAS TOLERATED ICE CHIPS AND JELLO SINCE RETURNNG FROM SURGERY. IS PLEASANT & COOPERATIVE WITH HER CARE.
--- NOTE | 2022-02-02 05:20 | NUR ---
SHIFT SUMMARY POD #1. AOX4. VSS. REPORTED NAUSEA 1X AFTER AMBULATING TO RESTROOM, MEDICATED c ZOFRAN & NO FURTHER NAUSEA REPORTED, NO EMESIS THIS SHIFT. PT ABLE TO TOLERATE SNACKS-KYLE CADET PB, SF PUDDING W/O N/V. REPORTS 5-9/10 PAIN IN UPPER ABD & AROUND SURGICAL INCISIONS, MEDICATED 2X c 5MG ROXICODONE & 2X c 0.5 MG DILAUDID. SURGICAL STERI STRIPS C/D/I NO DRAINAGE NOTED. UPPER ABD TENDER TO PALPATION. PT TOLERATED AMBULATING DOWN [place] & BACK TO . CALL LIGHT IN REACH, PT ABLE TO MAKE NEEDS KNOWN. WILL MONITOR.
[2022-02-02] MEDS ORDERED: OXYC5 PO (11:50)
--- NOTE | 2022-02-02 16:59 | NUR ---
PT IS A/OX4, UP IND IN HER ROOM APPEARS TO BE BREATHING EASILY ON RA AT THIS TIME. THE PT CONTINUED TO HAVE PAIN AT HER INCISION SITE MID UPPER ABD T/O THE DAY. THE PT WAS MEDICATED FOR PAIN T/O THE DAY. PT WAS DISCHARGED. HOWEVER, FELT THAT HER PAIN WAS NOT CONTROLED ENOUGH YET. DR. MANZANO WAS CALLED AND THE DISCHARGE WAS POSTPONED FOR TOMORROW. CALL LIGHT IN REACH WILL CONTINUE TO MONITOR AND ASSESS FOR CHANGES
--- NOTE | 2022-02-02 18:41 | NUR ---
SHIFT SUMMARY CARE WAS ASSUMED AT 1645. PT IS IN HER BED SLEEPINGL PLAN WAS TO DISCHARGE TODAY AFTER LAP CHOLEY WAS DONE YESTERDAY, HOWEVER PT FELT SHE WOULD NOT BE ABLE TO MANAGE HER PAIN AT HOME SO DECISION WAS MADE TO STAY. PT HAS BEEN PUMPING SND KEEPING HER BREATMILK IN THE STAFF PUMPING FRIDGE. PT WILL MOST LIKELY BE DISCHAGRE TOMORROW. BED IS LOWEST POSITION AND CALL LIGHT IN REACH
--- NOTE | 2022-02-03 06:04 | NUR ---
SHIFT SUMMARY AOX4. VSS. HAS TOLERATED JELLO, CRACKERS W/O ANY NAUSEA OR EMESIS. REPORTS 5-6/10 PAIN MAINLY IN MID UPPER ABD SURICAL INSICION SITE, MEDICATED 2X c 0.5MG DILAUDID & 2X c 10MG OXYCODONE & 1X c 800MG IBPROPHEN, STATES PAIN LEVEL HAS BEEN MORE TOLERABLE TODAY. REPORTS TENDER TO TOUCH MID UPPER ABD STERI STRIP ALSO, NO REDNESS OR DRAINAGE NOTED. HAS BEEN UP AMBULATING HALLS A FEW TIMES TONIGHT. IND IN RM, HOPING TO DC HOME THIS AM. CALL LIGHT IN REACH & PT ABLE TO MAKE NEEDS KNOWN.
--- NOTE | 2022-02-03 11:28 | NUR ---
DISCHARGE SUMMARY PATIENT DISCHARGED HOME. DISCHARGE PAPERWORK REVIEWED WITH PATIENT, ALL QUESTIONS ANSWERED. PRESCRIPTIONS HAD PREVIOUSLY BEEN SENT IN TO [facility] AND PATIENT HAD ALREADY RECEIVED CONFIRMATION. IV D/C'D. ABDONIMALS INCISION SITES C/D/I X4. PATIENT AND ALL BELONGINGS TAKEN WITH PATIENT INCLUDING BREAST MILK AND PICKED UP BY FAMILY.
== END 2022-02-03 10:31 | disposition home or self-care (01) ==
LOC: ER 21:45 → MEDS 02-01 01:10 → ENPENDDIS 02-02 16:16 → MEDS 02-03 10:31
PROVIDERS: Physician Assistant; Student in an Organized Health Care Education/Training Program; ADMIT Surgery
PROC: BF12YZZ Fluoroscopy of Gallbladder using Other Contrast (ICD-10-PCS; principal; 2022-02-01 13:45)
PROC: 0FT44ZZ Resection of Gallbladder, Percutaneous Endoscopic Approach (ICD-10-PCS; principal; 2022-02-01 13:45)
DX: K81.2 Acute cholecystitis with chronic cholecystitis (principal); E66.01 Morbid (severe) obesity due to excess calories; E03.9 Hypothyroidism, unspecified; F17.290 Nicotine dependence, other tobacco product, uncomplicated; K76.0 Fatty (change of) liver, not elsewhere classified; I10 Essential (primary) hypertension; K58.9 Irritable bowel syndrome, unspecified; Z68.43 Body mass index [BMI] 50.0-59.9, adult; Z20.822 Contact with and (suspected) exposure to COVID-19
CPT/HCPCS: 0241U; 36415; 74300; 76705; 80053; 81001; 82947; 83690; 84703; 85025; 87086; 88304; 96372; 96374; 96375; 96376; 99285-25; A9270; C1729; G0378; J0690; J1100; J1170; J1650; J1885; J2250; J2270; J2405; J2704; J2795; J3010; J7030; J7120

== ENCOUNTER 2022-02-08 21:52 | Emergency (ER) | payer OTHER ==
[~2022-02-08] VITALS: Ht 160 cm; Wt 136.1 kg
[~2022-02-08 21:52] MED LIST changes: +LABE100 PO; +OXYC5 PO
[2022-02-08 23:50] LABS: BASOPHILS ABSOLUTE AUTO 0.01 K/mm3 (0.00-0.23); BASOPHILS PERCENT AUTO 0 % (0-2); EOSINOPHILS ABSOLUTE AUTO 0.22 K/mm3 (0.00-0.68); EOSINOPHILS PERCENT AUTO 2 % (0-6); Hematocrit 28.5 % (33.0-51.0); Hemoglobin 9.1 g/dL (11.5-16.0); IMMATURE GRAN ABSOLUTE AUTO 0.02 K/mm3 (0.00-0.10); IMMATURE GRAN PERCENT AUTO 0 % (0-1); LYMPHOCYTES ABSOLUTE AUTO 1.97 K/mm3 (0.84-5.20); LYMPHOCYTES PERCENT AUTO 20 % (21-46); MONOCYTES ABSOLUTE AUTO 0.45 K/mm3 (0.16-1.47); MONOCYTES PERCENT AUTO 5 % (4-13); Mean Corpuscular HGB 26.6 pg (26.0-34.0); Mean Corpuscular HGB Conc 31.9 g/dL (31.5-36.5); Mean Corpuscular Volume 83 fL (80-100); Mean Platelet Volume 9.4 fL (9.1-12.4); NEUTROPHILS ABSOLUTE AUTO 7.43 K/mm3 (1.96-9.15); NEUTROPHILS PERCENT AUTO 74 % (41-73); Platelet Count 483 K/mm3 (150-400); RDW Coefficient Variation 13.3 % (11.7-14.2); RDW Standard Deviation 40.5 fL (35.1-46.3); Red Blood Cell Count 3.42 M/mm3 (3.80-5.20)
[2022-02-09 00:09] LABS: Albumin, Blood 3.4 g/dL (3.4-5.0); Albumin/Globulin Ratio 0.8 (0.8-1.8); Bilirubin, Total 0.2 mg/dL (0.1-1.0); Bun/Creatinine Ratio 15.8 (12.0-20.0); Calcium, Blood 9.3 mg/dL (8.5-10.1); Creatinine, Blood 0.82 mg/dL (0.40-1.00); Globulin, Blood 4.2 g/dL (2.2-4.0); Potassium, Blood 3.7 mmol/L (3.5-5.5); Total Protein, Blood 7.6 g/dL (6.4-8.2)
== END 2022-02-09 03:08 | disposition home or self-care (01) ==
LOC: ER 21:52
PROVIDERS: Physician Assistant
DX: R07.9 Chest pain, unspecified (principal); R06.02 Shortness of breath; F17.290 Nicotine dependence, other tobacco product, uncomplicated; Z98.890 Other specified postprocedural states
CPT/HCPCS: 36415; 71045; 71260; 80053; 83690; 85025; J1885; Q9967

== ENCOUNTER → 2022-05-03 | Outpatient (CLI) | payer OTHER ==
[~2022-05-03] MED LIST changes: +MELA3 PO
== END | disposition home or self-care (01) ==
DX: N89.8 Other specified noninflammatory disorders of vagina (principal); R30.0 Dysuria

== ENCOUNTER 2023-11-20 08:51 | Emergency (ER) | payer OTHER ==
[~2023-11-20] VITALS: Ht 160 cm; Wt 144.2 kg
[2023-11-20 09:29] LABS: Source, Urine Clean Catch
[2023-11-20 09:32] LABS: Appearance, Urine Clear (Clear); Bilirubin, Urine Neg (Neg); Blood, Urine Neg (Neg); Color, Urine Yellow (P-Yellow); Glucose Qualitative, Urine Neg (Neg); Ketones, Urine Neg (Neg); Leukocyte Esterase, Urine Neg (Neg); Nitrite, Urine Neg (Neg); Protein, Urine Neg (Neg); Specific Gravity, Urine 1.015 (1.003-1.022); Urobilinogen, Urine NORM (Normal); pH, Urine 6.5 (5.0-8.0)
[2023-11-20] MEDS ORDERED: OxyCODONE 5 mg/Acetamin 325 mg TABLET PO ONE (09:35)
[2023-11-20] MEDS ORDERED: Ondansetron HCl 2 MG / ML 2ML Vial IV ONE (09:35)
[2023-11-20] MEDS ORDERED: NS 1,000 ML IV SCH (09:35)
[2023-11-20 10:10] LABS: BASOPHILS ABSOLUTE AUTO 0.03 K/mm3 (0.00-0.23); BASOPHILS PERCENT AUTO 0 % (0-2); EOSINOPHILS ABSOLUTE AUTO 0.14 K/mm3 (0.00-0.68); EOSINOPHILS PERCENT AUTO 2 % (0-6); Hematocrit 39.5 % (33.0-51.0); Hemoglobin 13.2 g/dL (11.5-16.0); IMMATURE GRAN ABSOLUTE AUTO 0.02 K/mm3 (0.00-0.10); IMMATURE GRAN PERCENT AUTO 0 % (0-1); LYMPHOCYTES ABSOLUTE AUTO 2.09 K/mm3 (0.84-5.20); LYMPHOCYTES PERCENT AUTO 26 % (21-46); MONOCYTES ABSOLUTE AUTO 0.44 K/mm3 (0.16-1.47); MONOCYTES PERCENT AUTO 6 % (4-13); Mean Corpuscular HGB 29.1 pg (26.0-34.0); Mean Corpuscular HGB Conc 33.4 g/dL (31.5-36.5); Mean Corpuscular Volume 87 fL (80-100); Mean Platelet Volume 9.8 fL (9.1-12.4); NEUTROPHILS ABSOLUTE AUTO 5.35 K/mm3 (1.96-9.15); NEUTROPHILS PERCENT AUTO 66 % (41-73); Platelet Count 308 K/mm3 (150-400); RDW Coefficient Variation 12.4 % (11.7-14.2); RDW Standard Deviation 39.5 fL (35.1-46.3); Red Blood Cell Count 4.53 M/mm3 (3.80-5.20); White Blood Cell Count 8.07 K/mm3 (4.00-11.30)
[2023-11-20 10:31] LABS: Alanine Aminotransfer (ALT/SGP 78 U/L (12-78); Albumin, Blood 3.4 g/dL (3.4-5.0); Albumin/Globulin Ratio 0.8 (0.8-1.8); Alk Phos 81 U/L (50-136); Anion Gap 7 mmol/L (3-11); Aspartate Aminotrans (AST/SGOT 21 U/L (12-37); Bilirubin, Total <0.1 mg/dL (0.1-1.0); Blood Urea Nitrogen 9 mg/dL (8-24); Bun/Creatinine Ratio 16.2 (12.0-20.0); CO2, Blood 28 mmol/L (21-32); Calcium, Blood 9.1 mg/dL (8.5-10.1); Chloride, Blood 109 mmol/L (98-108); Creatinine, Blood 0.56 mg/dL (0.40-1.00); Glomerular Filtration Rate 130 (60-); Glucose, Blood 135 mg/dL (70-99); Potassium, Blood 4.6 mmol/L (3.5-5.5); Sodium, Blood 139 mmol/L (136-145); Total Protein, Blood 7.4 g/dL (6.4-8.2)
[2023-11-20] MEDS ORDERED: Atropine/Scopalam/Hyoscam/PB 5 ML UDC PO ONE (10:45)
[2023-11-20] MEDS ORDERED: Mag Hydrox/AL Hydrox/Simeth 30 ML UDC PO ONE (10:45)
[2023-11-20] MEDS ORDERED: Lidocaine 2% Viscous Soln 15 ML UDC PO ONE (10:45)
[2023-11-20] MEDS ORDERED: ONDA4ODT MM (12:08)
[2023-11-20] MEDS ORDERED: Percocet 5-3251 EACH PO (12:08)
[2023-11-20 12:20] VITALS: BP 11/69
== END 2023-11-20 12:24 | disposition home or self-care (01) ==
LOC: ER 08:51
PROVIDERS: Student in an Organized Health Care Education/Training Program
DX: R10.11 Right upper quadrant pain (principal); R10.13 Epigastric pain; F17.290 Nicotine dependence, other tobacco product, uncomplicated; Z88.8 Allergy status to other drugs, medicaments and biological substances
CPT/HCPCS: 74177; 76705; 80053; 81003; 81025; 83690; 85025; 96361; 96374-59; 99284-25; A9270; J2405; J7030; Q9967

== ENCOUNTER 2024-08-15 19:39 | Emergency (ER) | payer OTHER ==
[~2024-08-15] VITALS: Ht 160 cm; Wt 139.7 kg
[2024-08-15 21:09] LABS: BASOPHILS ABSOLUTE AUTO 0.03 K/mm3 (0.00-0.23); BASOPHILS PERCENT AUTO 0 % (0-2); EOSINOPHILS ABSOLUTE AUTO 0.13 K/mm3 (0.00-0.68); EOSINOPHILS PERCENT AUTO 1 % (0-6); Hematocrit 41.3 % (33.0-51.0); Hemoglobin 14.2 g/dL (11.5-16.0); IMMATURE GRAN ABSOLUTE AUTO 0.03 K/mm3 (0.00-0.10); IMMATURE GRAN PERCENT AUTO 0 % (0-1); LYMPHOCYTES ABSOLUTE AUTO 2.61 K/mm3 (0.84-5.20); LYMPHOCYTES PERCENT AUTO 26 % (21-46); MONOCYTES PERCENT AUTO 5 % (4-13); Mean Corpuscular HGB Conc 34.4 g/dL (31.5-36.5); Mean Corpuscular Volume 87 fL (80-100); Mean Platelet Volume 9.6 fL (9.1-12.4); NEUTROPHILS ABSOLUTE AUTO 6.88 K/mm3 (1.96-9.15); NEUTROPHILS PERCENT AUTO 68 % (41-73); Platelet Count 310 K/mm3 (150-400); Red Blood Cell Count 4.73 M/mm3 (3.80-5.20); White Blood Cell Count 10.18 K/mm3 (4.00-11.30)
[2024-08-15 21:35] LABS: Albumin/Globulin Ratio 0.9 (0.8-1.8); Bilirubin, Total 0.3 mg/dL (0.1-1.0); Bun/Creatinine Ratio 16.3 (12.0-20.0); Calcium, Blood 9.5 mg/dL (8.5-10.1); Creatinine, Blood 0.74 mg/dL (0.40-1.00); Globulin, Blood 4.3 g/dL (2.2-4.0); Potassium, Blood 3.6 mmol/L (3.5-5.5); Total Protein, Blood 8.3 g/dL (6.4-8.2)
[2024-08-15 23:39] LABS: Source, Urine Clean Catch
[2024-08-15 23:48] LABS: Bilirubin, Urine Neg (Neg); Blood, Urine Neg (Neg); Glucose Qualitative, Urine Neg (Neg); Ketones, Urine Neg (Neg); Leukocyte Esterase, Urine 1+ (Neg); Nitrite, Urine Neg (Neg); Protein, Urine 1+ (Neg); Specific Gravity, Urine 1.025 (1.003-1.022); Urobilinogen, Urine NORM (Normal)
[2024-08-15 23:55] LABS: Appearance, Urine Hazy (Clear); Color, Urine Yellow (P-Yellow)
[2024-08-15 23:56] LABS: Bacteria Many /hpf; Red Blood Cells, Urine 0-2 /hpf (0-2); Squamous Epithelial Cells Many /hpf (Few); White Blood Cells, Urine 0-2 /hpf (0-5)
[2024-08-16] MEDS ORDERED: Famotidine 10 MG/ML 2ML Vial IV ONE (00:15)
[2024-08-16] MEDS ORDERED: Ondansetron HCl 2 MG / ML 2ML Vial IV ONE (00:15)
[2024-08-16] MEDS ORDERED: RX Prepack 2 Tabs Ondansetron ODT 4MG UD ONE (02:30)
[2024-08-16] MEDS ORDERED: Ketorolac Tromethamine 15mg Vial IV ONE (02:30)
[2024-08-16 04:07] VITALS: BP 121/73
== END 2024-08-16 04:09 | disposition home or self-care (01) ==
LOC: ER 19:39
PROVIDERS: Physician Assistant
DX: R10.13 Epigastric pain (principal)
CPT/HCPCS: 74177; 80053; 81001; 83690; 84484; 84703; 85025; 87086; 93005; 93010; 96374; 96375; 99284-25; A9270; J1885; J2405; Q9967

== ENCOUNTER 2024-12-26 09:20 | Emergency (ER) | payer OTHER ==
[~2024-12-26] VITALS: Ht 160 cm; Wt 147.4 kg
[2024-12-26 10:20] LABS: BASOPHILS ABSOLUTE AUTO 0.02 K/mm3 (0.00-0.23); BASOPHILS PERCENT AUTO 0 % (0-2); EOSINOPHILS ABSOLUTE AUTO 0.01 K/mm3 (0.00-0.68); EOSINOPHILS PERCENT AUTO 0 % (0-6); Hematocrit 38.5 % (33.0-51.0); Hemoglobin 13.1 g/dL (11.5-16.0); IMMATURE GRAN ABSOLUTE AUTO 0.02 K/mm3 (0.00-0.10); IMMATURE GRAN PERCENT AUTO 0 % (0-1); LYMPHOCYTES ABSOLUTE AUTO 1.29 K/mm3 (0.84-5.20); LYMPHOCYTES PERCENT AUTO 16 % (21-46); MONOCYTES ABSOLUTE AUTO 0.65 K/mm3 (0.16-1.47); MONOCYTES PERCENT AUTO 8 % (4-13); Mean Corpuscular HGB Conc 34.0 g/dL (31.5-36.5); Mean Corpuscular Volume 87 fL (80-100); NEUTROPHILS ABSOLUTE AUTO 5.91 K/mm3 (1.96-9.15); NEUTROPHILS PERCENT AUTO 75 % (41-73); NRBC ABSOLUTE 0.00 K/mm3 (0.00-0.02); NRBC Auto 0.0 /100 WBC (0.0-0.2); Platelet Count 217 K/mm3 (150-400); RDW Coefficient Variation 12.6 % (11.7-14.2); RDW Standard Deviation 40.0 fL (35.1-46.3)
[2024-12-26 11:12] LABS: Alanine Aminotransfer (ALT/SGP 34.0 U/L (12-78); Albumin, Blood 3.6 g/dL (3.4-5.0); Albumin/Globulin Ratio 0.8 (0.8-1.8); Anion Gap 8.0 mmol/L (3-11); Aspartate Aminotrans (AST/SGOT 20.0 U/L (12-37); Bilirubin, Total 0.8 mg/dL (0.1-1.0); Blood Urea Nitrogen 8.0 mg/dL (8-24); CO2, Blood 27.0 mmol/L (21-32); Calcium, Blood 8.6 mg/dL (8.5-10.1); Chloride, Blood 102.0 mmol/L (98-108); Creatinine, Blood 0.84 mg/dL (0.40-1.00); Globulin, Blood 4.7 g/dL (2.2-4.0); Glucose, Blood 124.0 mg/dL (70-99); Potassium, Blood 3.4 mmol/L (3.5-5.5); Sodium, Blood 134.0 mmol/L (136-145); Total Protein, Blood 8.3 g/dL (6.4-8.2)
[2024-12-26 12:18] VITALS: BP 152/93
[2024-12-26] MEDS ORDERED: PRED20 PO (12:18)
[2024-12-26] MEDS ORDERED: Diflucan150 MG PO (12:25)
== END 2024-12-26 13:29 | disposition home or self-care (01) ==
LOC: ER 09:20
PROVIDERS: Student in an Organized Health Care Education/Training Program
DX: J02.9 Acute pharyngitis, unspecified (principal); E03.9 Hypothyroidism, unspecified; F17.290 Nicotine dependence, other tobacco product, uncomplicated; E66.9 Obesity, unspecified; Z68.43 Body mass index [BMI] 50.0-59.9, adult; Z91.048 Other nonmedicinal substance allergy status; Z79.899 Other long term (current) drug therapy
CPT/HCPCS: 80053; 85025; 96374; 99284-25; J2919; J7120

== ENCOUNTER → 2024-12-31 | Outpatient (CLI) | payer OTHER ==
[~2024-12-31] MED LIST changes: +Diflucan150 MG PO
== END ==
LOC: LAB SHORT 18:56 → LAB 18:56
DX: J02.9 Acute pharyngitis, unspecified (principal)
CPT/HCPCS: 87081